=== PATIENT | female | born 1985 | race Caucasian/White ===

== ENCOUNTER 2021-12-04 14:13 | Outpatient (CLI) | payer BC | END 2021-12-04 14:14 | disposition home or self-care (01) | LOC: BICMAMMO 14:13 | PROVIDERS: ATTEND Nurse Practitioner Family | DX: N63.24 Unspecified lump in the left breast, lower inner quadrant (principal); M79.622 Pain in left upper arm; R59.0 Localized enlarged lymph nodes | CPT/HCPCS: 77066; G0279 ==